=== PATIENT | female | born 1995 | race Caucasian/White ===

== ENCOUNTER → 2021-02-23 | Outpatient (CLI) | payer OTHER ==
[~2021-02-23] MED LIST: ELIQUIS2.5 MG PO; FAMOTIDINE20 MG PO; FOLIC ACID1 MG PO; METHOCARBAMOL750 MG PO; NORCO 10-325 T1 EACH PO; TRAMADOL HCL50 MG PO; VITAMIN D22000 UNIT PO
== END ==
LOC: EXRD 10:00
DX: M85.80 Other specified disorders of bone density and structure, unspecified site (principal)
CPT/HCPCS: 77080